=== PATIENT | female | born 1985 | race Asian ===

== ENCOUNTER 2024-07-11 13:10 | Emergency (ER) | payer SELFPAY ==
[~2024-07-11] VITALS: Ht 162.6 cm; Wt 70.0 kg
[2024-07-11] MEDS: ONDANSETRON 4MG ODT PO STA (13:21)
[2024-07-11 13:22] VITALS: BP 132/90; PULSE 110; RESP 16; TEMP 98.9; O2SAT 98
[2024-07-11] MEDS: MAGNESIUM/ALUMINUM HYDROXIDE/SIMETHICONE 30ML UDC PO STA (14:32)
[2024-07-11] MEDS: FAMOTIDINE 20MG TABLET PO ONE (14:32)
[2024-07-11 14:46] LABS: HEMATOCRIT. 46.9 % (36.0-48.0); HEMOGLOBIN. 15.9 g/dL (12.0-16.0); MEAN PLATELET VOLUME 6.7 fl (7.4-10.4); PLATELET 401 x1000/uL (130-400); RED BLOOD CELL COUNT 5.15 mill/uL (4.2-5.4); RED CELL DISTRIBUTION WIDTH 14.4 % (11.6-14.6); WHITE BLOOD COUNT 16.6 x1000/uL (4.5-11.0)
[2024-07-11 14:54] LABS: CHLORIDE 111 mEq/L (98-107); POTASSIUM 4.1 mEq/L (3.5-5.1); SODIUM 138 mEq/L (136-145)
[2024-07-11 14:55] LABS: CALCIUM 9.9 mg/dL (8.7-10.4); CARBON DIOXIDE 18 mEq/L (21-32)
[2024-07-11 14:59] LABS: HCG SCREEN NEGATIVE
[2024-07-11 15:00] LABS: CREATININE 0.7 mg/dL (0.6-1.0); GLUCOSE 129 mg/dL (70-105); INR 0.9; PROTHROMBIN TIME 9.8 sec (9.6-11.0); UREA NITROGEN BLOOD 15 mg/dL (9-23)
[2024-07-11 15:02] LABS: ALANINE AMINOTRANSFERASE 11 IU/L (10-49); ALBUMIN 4.6 g/dL (3.2-4.8); ASPARTATE AMINOTRANSFERASE 19 IU/L (<34); BILIRUBIN DIRECT 0.2 mg/dL (<=3.0); BILIRUBIN TOTAL 0.7 mg/dL (0.1-1.0)
[2024-07-11 15:03] LABS: PROTEIN TOTAL 7.9 g/dL (6.0-8.3)
[2024-07-11 15:14] LABS: DIFFERENTIAL COMMENT 1
[2024-07-11 16:03] LABS: CLARITY URINE CLEAR (CLEAR); COLOR URINE YELLOW (YELLOW); GLUCOSE URINE NEGATIVE (NEGATIVE); KETONES URINE NEGATIVE (NEGATIVE); LEUKOCYTE ESTERASE URINE NEGATIVE (NEGATIVE); NITRITE URINE NEGATIVE (NEGATIVE); OCCULT BLOOD URINE NEGATIVE (NEGATIVE); PH URINE 5.5 (4.5-8.0); PROTEIN URINE TRACE (NEGATIVE); SPECIFIC GRAVITY URINE 1.029 (1.005-1.030); UROBILINOGEN URINE 0.2 E.U./dL (0.2-1.0)
[2024-07-11] MEDS ORDERED: AZIT500T8 MT (16:07)
[2024-07-11] MEDS ORDERED: LACT1CAP68 MT (16:07)
[2024-07-11 16:36] LABS: PLATELET ESTIMATE NORMAL
[2024-07-11 17:05] LABS: BACTERIA URINE TRACE; RBC URINE 0-2 /hpf (0-2); SQUAMOUS EPITHELIAL CELL URINE FEW /lpf (RARE/1+); WBC URINE 0-2 /hpf (0-2)
== END 2024-07-11 16:16 | disposition home or self-care (01) ==
LOC: ER 13:41
DX: K52.9 Noninfective gastroenteritis and colitis, unspecified (principal); J45.909 Unspecified asthma, uncomplicated
CPT/HCPCS: 99284; 80076; 80048; 81003; 84703; 83690; 85025; 85610; 36415; Q0162